=== PATIENT | male | born 2000 | race Caucasian/White ===

== ENCOUNTER 2020-11-24 19:39 | Emergency (ER) | payer OTHER, SELFPAY ==
[2020-11-24 19:45] VITALS: BP 127/71; PULSE 66; RESP 18; TEMP 37; O2SAT 100
--- NOTE | 2020-11-24 19:45 | DI.RAD_ITS ---
EXAM: XR FOOT RT COMPLETE CLINICAL HISTORY: Heel pain, Injury, R/O fracture. TECHNIQUE: 2D digital imaging was performed. COMPARISON: CR LEFT FOOT COMPLETE from 04/08/2012 FINDINGS: BONES: No acute fracture is present. No bony destructive lesion is seen. JOINTS: No dislocation present. SOFT TISSUE: Normal. IMPRESSION: No acute fracture or dislocation. If symptoms persist, a follow-up examination may be obtained in 10 -14 days to assess for occult fracture. DATA REPOSITORY: RADIATION DOSE DELIVERED:
--- NOTE | 2020-11-24 19:53 | ED.GENADUL_ITS ---
Discharge Plan Disposition Patient Disposition: HOME Condition: Stable Discharge Details Clinical Impression: Foot sprain Primary Care Provider: David Rodriguez ED Provider: Lauryn Pandey Home Meds and New Rx's Prescriptions: No Action No Known Home Meds RF: 0 Discharge Instructions Instructions: Foot Sprain (ED) Additional Instructions: Rest,, ice, compression. Elevate. please take Tylenol or Ibuprofen with food every 4-6 hours as needed for pain and swelling. Follow up with primary care provider in 3-5 days. Return to ED sooner if any worsening or concerns. Increase oral fluids. Postop shoe and Bao wrap as needed for comfort. Wear comfortable shoes. Referrals: David Rodriguez [Primary Care Provider] - Medical Decision Making 20 year old male presents to the ED with right heel pain after stomping hard or something approximately 4 hrs prior to arrival. Patient states pain increased with any ambulation or weight bearing. Take any meds did not prior to medication arrival. Upon initial exam, no obvious deformity or swelling. Imaging protocol: XR Right foot. Views: 3 or more views. COMPARISON: No relevant prior studies available. FINDINGS: Bones/joints: Normal. Soft tissues: Normal. IMPRESSION: No acute findings. Thank you for allowing us to participate in the care of your patient. Dictated and Authenticated by: Shahid Elizalde MD Patient given postop shoe and Bao wrap instructed on home care including rest ice compression elevation and alternating ibuprofen or Tylenol as needed. Patient verbalized understanding. No obvious fractures noted on imaging. Differential diagnosis includes but not limited to occult fracture, plantar fasciitis, foot sprain. HPI General Mode of arrival: ambulatory . Date/Time Provider Initiated Documentation: 11/24/20 19:40 . Limitations to Documentation: no limitations . Information obtained by: patient . HPI Narrative: 20 year old male presents to the ED with right heel pain after stomping hard or something approximately 4 hrs prior to arrival. Patient states pain increased with any ambulation or weight bearing. Take any meds did not prior to medication arrival. Upon in itial exam, no obvious deformity or swelling. Related Data Home Medications Medication Instructions Recorded Confirmed Unknown [No Known Home Meds] 11/14/17 11/24/20 Allergies Allergy/AdvReac Type Severity Reaction Status Date / Time No Known Allergies Allergy Unverified 11/14/17 18:44 General Stated Complaint: Orthopedic JO: 4 Review of Systems All systems reviewed & are unremarkable except as noted in HPI and below Musculoskeletal Musculoskeletal: Reports arthralgias (heeL pain) [facility] Social History Smoking/Tobacco Use Status: Current every day Tobacco Type: cigarettes Smoking risk assessment performed?: Yes Alcohol Intake: current Alcohol Intake frequency: a few times a week Drug use: Daily Substance use type: marijuana Do you feel safe at home: Yes Exam Extrem Right lower extremity: normal to inspection, normal capillary refill, no joint enlargement and foot Details: normal capillary refill, normal to inspection and tenderness Location: of the calcaneus Details: with squeeze; not of the plantar foot; edema noted and no edema; no cyanosis and no edema Ankle/foot/toe images: 1. Tenderness with palpation Other: No obvious deformity, erythema or swelling noted. Dorsal pedal pulses intact. Nontender with palpation over the lateral and medial malleolus, no Achilles tenderness. Tenderness with palpation over the calcaneus. Course Vital Signs Vital signs: Vital Signs Temperature 37.0 C 11/24/20 19:45 Pulse 66 11/24/20 19:45 Respiratory Rate 18 11/24/20 19:45 Blood Pressure 127/71 11/24/20 19:45 Pulse Oximetry 100 11/24/20 19:45 Temperature 37.0 C 11/24/20 19:45 Pulse 66 11/24/20 19:45 Respiratory Rate 18 11/24/20 19:45 Respiratory Effort Non-Labored 11/24/20 19:47 Blood Pressure 127/71 11/24/20 19:45 Pulse Oximetry 100 11/24/20 19:45 Oxygen Delivery Method Room Air 11/24/20 19:45 Oxygen Flow Rate 0 11/24/20 19:45 Pain Level 1 11/24/20 19:48
--- NOTE | 2020-11-24 20:18 | DI.VRAD_ITS ---
PROCEDURE INFORMATION: Exam: XR Right Foot Exam date and time: 11/24/2020 8:06 PM Age: 20 years old Clinical indication: Right; Patient HX: Heel pain, injury; Additional info: R/O fracture TECHNIQUE: Imaging protocol: XR Right foot. Views: 3 or more views. COMPARISON: No relevant prior studies available. FINDINGS: Bones/joints: Normal. Soft tissues: Normal. IMPRESSION: No acute findings. Dictated and Authenticated by: Shahid Elizalde MD. Ordering:KEVYN Combs MD
== END 2020-11-24 20:45 | disposition home or self-care (01) ==
PROVIDERS: Emergency Provider Registered Nurse Emergency; PCP Internal Medicine
DX: S93.601A Unspecified sprain of right foot, initial encounter (principal); W22.09XA Striking against other stationary object, initial encounter
CPT/HCPCS: 99283; 73630; 99282

== ENCOUNTER 2023-03-30 16:31 | Outpatient (REF) | payer OTHER, SELFPAY ==
--- OUTSIDE RECORDS SUMMARY | 2023-03-30 16:54 | XMS_ITS | Continuity of Care Document ---
Author Name Address [address] [place] [address] Organization Address [address] [place] [address] Care Team Providers Care Port Engineer Name Role Phone PCP, of Choice Primary Care Physician Unavailab le Allergies, Adverse Reactions, Alerts No known allergies. Medications No known medications. Problem List Active Problems Medical Problem Onset Date Status Nondisplaced fracture of distal phalanx of finge r Active Laceration of nail bed of finger Active Procedures Procedure Date Status Finger(s) 2 vw Min LT January 16, 2022 completed Relevant Diagnostic Tests and/or Laboratory Data No known relevant diagnostic tests, laboratory data, and/or discharge summary. Advance Directives Advance Directive Response Recorded Date/ Time Do we have a copy on file here at [facility] [place]? No January 16, 2022 9:51am Does patient have an Advanced Directive? No January 16, 2022 9:51am Pt has a Living Will? No January 16, 2022 9:51am Pt has a Power of Process Assistant? No Apri l 2021 9:51am Chief Complaint and Reason for Visit Encounter Admit Date Chief Complaint Reason for V isit Registered Inpatient January 16, 2022 9:41am Laceration of nail bed of finger Nondisplaced fracture of distal phalanx of finger Hospital Discharge Instructions No known hospital discharge instructions. Encounters Encounter Facility Location Admit/Visit Date Discharge/Departure Date Attending Provider Registered Inpatient [facility] January 16, 2022 9:41am Alfonso Paez Encounter Diagnosis Onset Date Laceration of nail bed of finger Nondisplaced fracture of distal phalanx of finger Functional Status Query Response Date Recorded Comment Living Situation Home With Significant Other January 16, 2022 11:00am Immunizations Immunization Name Date Given Type Tdap January 16, 2022 Administered Plan of Care No Known Plan of Care Information Social History Query Response Date Recorded Comment Alcohol Use No January 16, 2022 11:00am Smoking Status Current every day smoker January 16, 2022 11:00am substance use type does not use January 16, 2022 10:19am Query Response Start Date Stop Date Smoking Status Current every day smoker Vital Signs Vital Reading Result Reference Range Collection Date/Time Height 5 ft 8 in January 16, 2022 10:03am Weight 63.503 kg January 16, 2022 10:03am Temperature 98.4 F 97.6 F-99.6 F January 16, 2022 10:03am Pulse 78 BPM 60-100 January 16, 2022 10:03am Respiration 20 RPM 12-24 January 16, 2022 10:03am Pulse Oximetry 100 % 95-100 January 16 10:03am Blood Pressure Systolic 116 100-140 Apri l 2021 10:03am Blood Pressure Diastolic 84 50-85 Apr il 2021 10:03am
--- OUTSIDE RECORDS SUMMARY | 2023-03-30 16:54 | XMS_ITS | Continuity of Care Document ---
Author Name Unknown Address [address] [place] [id number] Phone Organization [facility] Address [address] [place] [address] Phone Support Name Relationship Address Phone PCP, of Choice Primary Care Provider Unknown Unav ailable CATHI Graham Emergency Provider [facility] [place] [address] MD Alfonso Paez Attending Provider [facility] [address] Chief Complaint and Reason for Visit Chief Complaint L HAND FINGER LACERA TION Allergies, Adverse Reactions, Alerts No known allergies Social History Smoking Status Status Start Date End Date Date of Observa tion Smokes tobacco daily (finding) January 16, 2022 11:00am Observation Status Observation Response Date of Response Alcohol Use No January 16, 2022 11:00am substance use type does not use January 16 10:19am Smoking Status Current every day smoker December 282021 11:00am Additional Data Assigned Sex Male Problems Active Problems Medical Problem Onset Date Status Nondisplaced fracture of distal phalanx of finge r Active Laceration of nail bed of finger Active Laceration of left ring finger with damage to na il Active Medications Medication Status Dose Units Route Directions Qty Days St art Date End Date Instructions Hydrocodone-A cetaminophen Active 0.5 TAB PO Q6H 5 January 16, 2022 12:51pm Cephalexin Active 500 MG PO FOUR TIME S DAILY 28 7 January 16, 2022 12:56pm Immunizations Immunization Event Date Not Given Reason Dose Number Sewer Repairer Lot Number Vaccine Information Statement (VIS) Detail Tdap January 16, 2022 [id number] Vital Signs Vital Reading Result Reference Range Collection Date/Time Height 68 [in_i] Tanika 21st, 202 2 10:03am Weight 63.50 kg January 16 10:03am Body Temperature 98.4 [degF] 97.6-99.6 January 16, 2022 10:03am Heart Rate 78 /min 60-100 January 16 10:03am Respiratory rate 20 /min 12-24 January 16, 2022 10:03am Oxygen saturation by Pulse oximetry 100 % 95-100 January 16, 2022 10: 03am BP Systolic 116 mm[Hg] 100-140 January 16 10:03am BP Diastolic 84 mm[Hg] 50-85 January 16 10:03am Advance Directives Advance Directive Response Recorded Date/ Time Does patient have an Advanced Directive? No January 16, 2022 9:51am Do we have a copy on file here at [facility]? No January 16, 2022 9:51am Pt has a Living Will? No December 9:51am Do we have a copy on file here at [facility]? No January 16, 2022 9:51am Pt has a Power of Editorial Clerk? No Apri 2021 9:51am Do we have a copy on file here at [facility]? No January 16, 2022 9:51am Encounters Encounter Location(s) Arrival/Admit Date Discharge/Depart Date Provider(s) Non-patient / Non-visit [facility] January 16, 2022 9:41am Alfonso Paez MD Plan of Treatment Future Tests Future scheduled test information is unavailable Pending Tests Pending diagnostic test information is unavailable Future Visits Future appointment information is unavailable Referrals to Other Providers Reason for Referral Referral Start Date Provider Provider Contact Information Provider Address No Pcp Alfonso Paez MD Work Phone: [facility] Orthopaedics [address] [facility] [address] Future Procedures Future procedure information is unavailable Future Medications Future medication information is unavailable Patient Instructions Patient instructions are unavailable Hospital Discharge Instructions Additional Instructions Today you had a laceration of your left finger. This injury and involves your fingernail and the nailbed so your nail was removed and the nailbed laceration was repaired and the nail was replaced to protect the nailbed and promote growth of a new fingernail. The sutures underneath your fingernail will dissolve. The external sutures that helped bring together the rest of the wound will need to be removed in 7 to 10 days. Recommend that you have this done in the orthopedic clinic at your follow-up or you may return to urgent care or follow-up with your primary doctor if your orthopedic appointment is later than 7 to 10 days from today. Take antibiotics as prescribed to prevent infection. Keep the area clean and dry. Do not get the area wet for 24 hours. After that you may wash with mild soap and water. Pat the area dry. For the next 48-72 hours you can use a small amount of bacitracin or double antibiotic ointment over the sutures and then cover with gauze. After that no ointment is necessary. You also had a fracture of your finger so it is important to wear the finger splint until you are seen in orthopedics for follow-up. You need to limit use and movement of the finger. Rest, ice, elevation, Tylenol, and/or ibuprofen per package instructions with food may be helpful. A small amount of opioid pain medication has been prescribed for severe pain. It is important to know that this medication may make you drowsy so do not drink alcohol or drive while taking it. Please follow-up with orthopedics as referred. Reach out to their clinic directly to schedule follow-up. I have provided you work restrictions that should be followed until you are cleared by orthopedics. If you have any increasing pain, redness, swelling, drainage, streaking, or develop any fevers or chills you should follow up with a medical provider right away.
--- OUTSIDE RECORDS SUMMARY | 2023-03-30 16:54 | XMS_ITS | Continuity of Care Document ---
Author Name [facility] Address [address] [place] [address] Organization [facility] Address [address] [place] [address] Care Team Providers Care Oil Spraying Machine Operator Name Role Phone PCP, of Choice Primary Care Physician Unavailab le Allergies, Adverse Reactions, Alerts No known allergies. Medications Active Medications Medication Dose Units Route Sig Qty Days Start Date St atus Hydrocodone-Acetamino phen 0.5 TAB ORAL Q6H PRN For pain 5 January 16, 2022 Active Cephalexin 500 MG ORAL FOUR TIMES DAILY 28 7 Apr 2021 Active Problem List Active Problems Medical Problem Onset Date Status Nondisplaced fracture of distal phalanx of finge r Active Laceration of nail bed of finger Active Laceration of left ring finger with damage to na il Active Procedures Procedure Date Status Finger(s) 2 vw Min LT January 16, 2022 completed Relevant Diagnostic Tests and/or Laboratory Data No known relevant diagnostic tests, laboratory data, and/or discharge summary. Advance Directives Advance Directive Response Recorded Date/ Time Do we have a copy on file here at [facility]? No January 16, 2022 9:51am Does patient have an Advanced Directive? No January 16, 2022 9:51am Pt has a Living Will? No January 16, 2022 9:51am Pt has a Power of Wood Ski Maker? No Apri l 2021 9:51am Hospital Discharge Instructions Additional Discharge Instructions Today you had a laceration of [...] up with a medical provider right away. No Instructions/Education Pr ovided Hospital Discharge Medications Medication Dose Units Route Sig Qty Days Order Date Status Ins tructions Hydrocodone-Aceta minophen 0.5 TAB ORAL Q6H PRN For pain January 16, 2022 Active Cephalexin 500 MG ORAL FOUR TIMES DAILY 28 7 January 16, 2022 Active Encounters Encounter Facility Location Admit/Visit Date Discharge/Departure Date Attending Provider Registered Inpatient [facility] January 16, 2022 9:41am Alfonso Paez Functional Status Query Response Date Recorded Comment [...]
--- OUTSIDE RECORDS SUMMARY | 2023-03-30 16:54 | XMS_ITS | Continuity of Care Document ---
Author Name [facility] Address [address] [place] [address] Organization [facility] Address [address] [place] [address] Support Name Relationship Address Phone PCP, of Choice Primary Care Provider Unknown Unav ailable Jluis Strange Attending Provider [facility] Orthopaed ics [address] [facility] [address] [place] [address] Referral, Self Referring Provider Unknown Unavail able Allergies, Adverse Reactions, Alerts No known allergies. Medications Discontinued Medications Medication Dose Units Route Sig Qty Days Start Date Discontinued Date Status Hydrocodone-Ac etaminophen 0.5 TAB ORAL Q6H PRN For pain 5 January 16, 2022 January 27, 2022 Discontinued Cephalexin 500 MG ORAL FOUR TIMES DAILY 28 7 January 16, 2022 January 23, 2022 Discontinued Problem List Active Problems Medical Problem Onset Date Status Nondisplaced fracture of distal phalanx of finge r Active Laceration of nail bed of finger Active Inactive/Resolved Problems Medical Problem Onset Date Status Laceration of left ring finger with damage to na il Inactive Procedures Procedure Date Status Finger(s) 2 vw Min LT January 16, 2022 completed Relevant Diagnostic Tests and/or Laboratory Data No known relevant diagnostic tests, laboratory data, and/or discharge summary. Advance Directives Advance Directive Response Recorded Date/ Time Do we have a copy on file here at [facility] [facility]? No January 16, 2022 9:51am Does patient have an Advanced Directive? No January 16, 2022 9:51am Pt has a Living Will? No January 16, 2022 9:51am Pt has a Power of Pipe Fitter Helper? No Apri l 2021 9:51am Chief Complaint and Reason for Visit Encounter Admit Date Chief Complaint Reason for V isit Registered Physician/Provider Office Visit January 27, 2022 10:37am LT RING FINGER LAC Laceration of nail b ed of finger Hospital Discharge Instructions No known hospital discharge instructions. Hospital Discharge Medications Medication Dose Units Route Sig Qty Days Order Date Status Instructions Hydrocodone-Bao taminophen 0.5 TAB ORAL Q6H PRN For pain 5 January 16, 2022 Discontinued Cephalexin 500 MG ORAL FOUR TIMES DAILY 28 7 January 16, 2022 Discontinued Encounters Encounter Facility Location Admit/Visit Date Discharge/Departure Date Attending Provider Registered Physician/Pr ovider Office Visit [facility] Orthopedic[facility]Ervin ab January 27, 2022 10:37am Jluis Strange Registered Inpatient [facility]opedic[facility] January 16, 2022 9:41am Alfonso Paez Encounter Diagnosis Onset Date Laceration of nail bed of finger Functional Status Query Response Date [...] Date/Time Height 5 ft 8 in January 27, 2022 10: 45am Weight 63.503 kg January 27, 2022 10: 45am Temperature 98.4 F 97.6 F-99.6 F January 16, 2022 10:03am Pulse 80 BPM 60-100 January 27, 2022 10: 45am Respiration 16 RPM 12-24 January 27, 2022 10: 45am Pulse Oximetry 98 % 95-100 January 27, 2022 1 0:45am Blood Pressure Systolic 116 100-140 Apri l 2021 10:03am Blood Pressure Diastolic 84 50-85 Apr il 2021 10:03am Body Mass Index 21.2 January 27, 2022 10:45am
--- OUTSIDE RECORDS SUMMARY | 2023-03-30 16:54 | XMS_ITS | Continuity of Care Document ---
Author Name [facility] Address [address] [place] [id number] Organization [facility] Address [address] [place] [address] Care Team Providers Care Production Supply Equipment Tender Name Role Phone PCP, of Choice Primary Care Physician Unavailab le Allergies, Adverse Reactions, Alerts No known allergies. Medications No known medications. Problem List No problem information available. Procedures Procedure Date Status Finger(s) 2 vw Min LT January 16, 2022 completed Relevant Diagnostic Tests and/or Laboratory Data No known relevant diagnostic tests, laboratory data, and/or discharge summary. Advance Directives Advance Directive Response Recorded Date/ Time Do we [place] a [place] [facility] No January 16, 2022 9:51am Does patient have an Advanced Directive? No January 16, 2022 9:51am Pt has a Living Will? No January 16, 2022 9:51am Pt has a Power of Director Hydrogen Storage Engineering? No Apri 2021 9:51am Hospital Discharge Instructions No known hospital discharge instructions. Encounters Encounter Facility Location Admit/Visit Date Discharge/Departure Date Attending Provider Registered Emergency [facility] January 16, 2022 9:41am Functional Status Query Response Date Recorded Comment Living Situation Home With Significant Other January 16, 2022 10:03am Immunizations No known immunizations. Plan of Care No Known Plan of Care Information Social History Query Response Date Recorded Comment Alcohol Use No January 16, 2022 10:19am Smoking Status Current every day smoker January 16, 2022 10:19am substance use type does not use January [...] 10:03am Blood Pressure Diastolic 84 50-85 Apr 2021 10:03am
--- OUTSIDE RECORDS SUMMARY | 2023-03-30 16:54 | XMS_ITS | Continuity of Care Document ---
Author Name [facility] Address [address] [place] [address] Organization [facility] Address [address] [place] [address] Care Team Providers Care Spot Washer Name Role Phone PCP, of Choice Primary [...] have a [place] here [place] [facility] No January 16, 2022 9:51am Does patient have an Advanced Directive? No January 16, 2022 9:51am Pt has a Living Will? No January 16, 2022 9:51am Pt has a Power of Radio Announcer? No Apri l 2021 9:51am Hospital Discharge [...] Date Discharge/Departure Date Attending Provider Registered Inpatient [facility] Orthopedic[facility]Ervin ab January 16, 2022 [...]
--- OUTSIDE RECORDS SUMMARY | 2023-03-30 16:54 | XMS_ITS | Continuity of Care Document ---
Author Name [facility] Address [address] [place] [address] Organization [facility] Address [address] [place] [address] Care Team Providers Care Instructor Adjunct Pharmacy Technician Name Role Phone PCP, of Choice Primary Care Physician Unavailab le Allergies, Adverse Reactions, Alerts No allergy information available. Medications No medication information available. Problem List No problem information available. Procedures No known history of procedures. Relevant Diagnostic Tests and/or Laboratory Data No known relevant diagnostic tests, laboratory data, and/or discharge summary. Advance Directives Advance Directive Response Recorded Date/ Time Do we have a copy on file here at [facility]? No January 16, 2022 9:51am Does patient have an Advanced Directive? No January 16, 2022 9:51am Pt has a Living Will? No January 16, 2022 9:51am Pt has a Power of Associate Sales Manager? No Apri l 2021 9:51am Hospital Discharge Instructions No known hospital discharge instructions. Encounters Encounter Facility Location Admit/Visit Date Discharge/Departure Date Attending Provider Registered Emergency [facility] January 16, 2022 9:41am Functional Status No known functional status. Immunizations No known immunizations. Plan of Care No Known Plan of Care Information Social History No known social history. Vital Signs No known vital signs results.
[2023-03-31 12:43] LABS: Chlamydia Result Positive (Negative); GC Result Negative (Negative)
[2023-03-31 12:59] LABS: Specimen Description URINE
== END 2023-03-30 16:32 | disposition home or self-care (01) ==
LOC: LBN 16:31
PROVIDERS: PCP Internal Medicine; Visit Provider Nurse Practitioner Family
DX: Z11.3 Encounter for screening for infections with a predominantly sexual mode of transmission (principal)
CPT/HCPCS: 87491; 87591

== ENCOUNTER 2023-09-10 08:28 | Emergency (ER) | payer SELFPAY ==
[2023-09-10 09:01] VITALS: BP 144/88; PULSE 68; RESP 15; TEMP 36.7; O2SAT 99
--- NOTE | 2023-09-10 09:12 | ED.GENADUL_ITS ---
Discharge Plan Disposition Patient Disposition: Home Discharge Details Clinical Impression: Abscess, dental Primary Care Provider: David Rodriguez ED Provider: Ave [facility] Home Meds and New Rx's Prescriptions: New penicillin V potassium 500 mg tablet 500 mg PO Q6H 7 Days Qty: 28 0RF Discharge Instructions Instructions: Dental Abscess (ED) Additional Instructions: gargle with warm saltwater 2-3 times a day and spit motrin 600 mg every 8 hours with food tylenol 650 mg every 4-6 hours for pain antibiotic until completed yogurt daily while on antibiotic stay away from hot and cold beverages and foods as the block performed will affect sensation for 4-16 hours return earlier with fever, difficulty swallowing, worsening pain Referrals: David Rodriguez [Primary Care Provider] - Discharge Data Discharge Date/Time-TO BE ENTERED AT DEPARTURE: 09/10/23 09:21 Medical Decision Making 23-year-old male presenting with dental abscess and pain, right facial swelling, #30, inferior alveolar nerve block performed with good effect Incision performed, approximately 5 cc of drainage, tolerated procedure without incident Placed on penicillin VK and has an appointment with dentist scheduled for Thursday Tolerated procedure without incident No evidence of Vikas's angina Return precautions reviewed and patient expressed understanding Medical Records Medical records reviewed: Yes I reviewed the patient's medical records. Lab Data Lab results reviewed: Yes I reviewed the patient's lab results. HPI General Date/Time Provider Initiated Documentation: 09/10/23 09:11 . HPI Narrative: This 23-year-old male presents with report of genital pain for the past 2 days with facial swelling, right lower. Denies any difficulty swallowing, chest pain, shortness of breath. Denies fever or chills. States he has a fractured tooth in the affected area. Related Data Home Medications Medication Instructions Recorded Confirmed penicillin V potassium 500 mg 500 mg PO Q6H 7 days #28 tabs 09/10/23 tablet Previous Rx's Medication Instructions Recorded penicillin V potassium 500 mg 500 mg PO Q6H 7 days #28 tabs 09/10/23 tablet Allergies Allergy/AdvReac Type Severity Reaction Status Date / Time No Known Allergies Allergy Unverified 09/10/23 09:03 General Stated Complaint: DentalOral JO: 4 PFSH All Active Problems (Updated 09/10/23 @ 09:15 by SALLY Salazar) Abscess, dental (Acute) Foot sprain (Acute) Social History Smoking/Tobacco Use Status: Current every day Tobacco Type: cigarettes Smoking risk assessment performed?: Yes Alcohol Intake: current Alcohol Intake frequency: a few times a week Drug use: Daily Substance use type: marijuana Do you feel safe at home: Yes Course Vital Signs Vital signs: Vital Signs Temperature 36.7 C 09/10/23 09:01 Pulse 68 09/10/23 09:01 Respiratory Rate 15 09/10/23 09:01 Blood Pressure 144/88 H 09/10/23 09:01 Pulse Oximetry 99 09/10/23 09:01 Temperature 36.7 C 09/10/23 09:01 Temperature Source Tympanic 09/10/23 09:01 Pulse 68 09/10/23 09:01 Respiratory Rate 15 09/10/23 09:01 Respiratory Effort Normal 09/10/23 09:01 Blood Pressure 144/88 H 09/10/23 09:01 Blood Pressure Position Sitting 09/10/23 09:01 Pulse Oximetry 99 09/10/23 09:01 Oxygen Delivery Method Room Air 09/10/23 09:01 Pain Level 7 09/10/23 09:02 Comment See paper chart 09/10/23 08:59 Procedures Abscess I/D Site: Other (dental abscess) Side (if applicable): Right Amount of anesthesia used (mL): 2 Technique: Needle Aspiration and Incised with #11 Blade Amount of fluid expressed (mL): 5 Irrigation: Yes Packing used?: None Nerve Block Nerve Block 1: Time out performed: Yes Local Anesthetic: Bupivicaine 0.5% Amount of anesthesia used (mL): 2 Side: right Intraoral Nerve Block: inferior alveolar Procedure Successful: Yes Patient Tolerated Procedure: well Complications: none PAWSS Have you Been Recently Intoxicated or Drunk Within the Last 30 days?: No Have you Ever Experienced Previous Episodes of Alcohol Withdrawal?: No Have you ever Experienced Withdrawal Seizures?: No Have you ever Experienced Delirium Tremens(DT)s?: No Have you ever undergone Alcohol Rehabilitation Treatment (i.e, inpt ot outpatient treatment programs)?: No Have you ever Experienced Blackouts?: No Have you ever Combined Alcohol with other Downers within the last 90 days?: No Have you ever Combined Alcohol with any other Substance of Abuse during the last 90 days?: No Result: 0
== END 2023-09-10 09:21 | disposition home or self-care (01) ==
LOC: ER 09:49
PROVIDERS: Emergency Provider Physician Assistant; PCP Internal Medicine
DX: K08.89 Other specified disorders of teeth and supporting structures (principal); K04.7 Periapical abscess without sinus; Z88.0 Allergy status to penicillin; Z72.0 Tobacco use
CPT/HCPCS: 41800; 99282; 99283